=== PATIENT | female | born 1990 | race Caucasian/White ===

== ENCOUNTER 2021-09-15 14:55 | Outpatient (CLI) | payer OTHER, SELFPAY | END 2021-09-15 23:59 | disposition short-term general hospital (02) | LOC: LABSPEC 14:57 | PROVIDERS: Referring Provider Physician Assistant; Visit Provider Physician Assistant | DX: Z20.822 Contact with and (suspected) exposure to COVID-19 (principal) | CPT/HCPCS: 87635; U0003; U0005 ==